=== PATIENT | female | born 1990 | race Caucasian/White ===

== ENCOUNTER 2022-12-29 09:20 | Outpatient (CLI) | payer SELFPAY ==
--- NOTE | 2022-12-29 09:15 | CRLHL7_ITS ---
For Patients: As a result of the Cures Act, medical imaging exams and procedure reports are released immediately into your electronic medical record. You may view this report before your referring provider. If you have questions, please contact your health care provider. INDICATION: First trimester scan, establish dates. COMPARISON: None. TECHNIQUE: Real-time wood-scale imaging of the pelvis was performed. FINDINGS: Sonographic imaging demonstrates a single living intrauterine gestation. The embryo demonstrates a regular cardiac rate measuring 174 beats per minute. The embryo`s crown-rump length measurement of 1.9 cm corresponds to a gestational age of 8 weeks 3 days with a sonographic due date of 08.07.23. There is a normal-appearing yolk sac. There are no gross abnormalities noted within the embryo at this early state of development. The gestational sac has a normal appearance. There are 2 subchorionic hemorrhages measuring 1.4 x 0.4 x 0.9 cm and 1.3 x 0.5 x 0.4 cm. The amount of fluid within the sac appears appropriate for gestational age. The cervix is closed. The myometrium appears normal. The ovaries are of normal size. Corpus luteal cyst left ovary. There are no suspicious fluid collections noted in the cul-de-sac. IMPRESSION: Single living intrauterine with sonographic gestational age 8 weeks 3 days and sonographic due date 08/07/2023. Two small subchorionic hemorrhages measuring 1.4 x 0.4 x 0.9 cm and 1.3 x 0.5 x 0.4 cm. Dictated by Bridger Finney MD @ 12/29/2022 11:14:30 AM (Electronically Signed)
== END 2022-12-29 09:21 | disposition home or self-care (01) ==
LOC: US 09:21
PROVIDERS: Visit Provider Physician Assistant
DX: Z34.91 Encounter for supervision of normal pregnancy, unspecified, first trimester (principal); O20.9 Hemorrhage in early pregnancy, unspecified; Z3A.08 8 weeks gestation of pregnancy
CPT/HCPCS: 76817; 86592; 86703; 86762; 86787; 86803; 86850; 86900; 86901; 87086; 87340; 87491; 87591

== ENCOUNTER 2022-12-29 10:27 | Outpatient (CLI) | payer OTHER, SELFPAY ==
[2022-12-29 14:33] LABS: Hepatitis B Surface Antigen* Negative (Negative)
[2022-12-29 14:40] LABS: HIV 1/2/P24 Combo Screen* Negative (Negative)
[2022-12-29 14:50] LABS: Hepatitis C Virus Antibody* Negative (Negative)
[2022-12-29 15:18] LABS: Chlamydia DNA Amplified* NOT DETECTED (No Detected); GC DNA Amplified* NOT DETECTED (No Detected)
[2022-12-31 01:30] LABS: Varicella-Zoster Virus Ab, IgG >4000.0 IV
[2022-12-31 01:31] LABS: Rubella Antibody IgG 38.7 IU/mL
[2022-12-31 03:52] LABS: Rapid Plasma Reagin (RPR) Non Reactive (Non Reactive)
== END 2022-12-29 10:28 | disposition home or self-care (01) ==
PROVIDERS: Visit Provider Physician Assistant
DX: Z34.91 Encounter for supervision of normal pregnancy, unspecified, first trimester (principal); Z3A.08 8 weeks gestation of pregnancy
CPT/HCPCS: 86592; 86703; 86762; 86787; 86803; 86850; 86900; 86901; 87086; 87340; 87491; 87591